=== PATIENT | female | born 1940 ===

== ENCOUNTER 2017-03-19 12:27 | Emergency (ER) | payer MEDICARE, OTHER ==
[2017-03-19 12:29] VITALS: BP 141/67; PULSE 96; RESP 16; TEMP 98.3; O2SAT 99
[2017-03-19] MEDS ORDERED: Sodium Chloride 0.9% 500 ML IV STA (12:50)
--- NOTE | 2017-03-19 12:52 | ED PDOC ---
HPI: General Adult Time Seen by Provider: 03/19/17 12:37 Chief Complaint (Nursing): Dizziness/Lightheaded Chief Complaint (Provider): Dizziness History Per: Patient History/Exam Limitations: no limitations Onset/Duration Of Symptoms: Days (5) Have you had recent travel within the past 21 days to any of the following countries: [place], [place], [place] or [place]?: No Current Symptoms Are (Timing): Still Present Severity: Moderate Additional History Per: Patient Additional Complaint(s): The pt is a 76yo female, PMHx of HTN, cardiac arrhythmia, high cholesterol, presents to the ED for evaluation of dizziness for the past 5 days, described as room spinning. She reports the dizziness was initially waxing and waning but today was constant, prompting her visit to the ED. She reports dizziness worsens with walking and states this is the first instance of such symptoms. Pt denies any headaches, chest pain, abdominal pain, nausea, vomiting, diarrhea, shortness of breath, vision problems, and weakness, numbness or tingling to to her extremities. Pt offers no additional medical complaints. Past Medical History Reviewed: Historical Data, Nursing Documentation, Vital Signs Vital Signs: Last Vital Signs Temp 98.3 F 03/19/17 12:28 Pulse 96 H 03/19/17 12:28 Resp 16 03/19/17 12:28 BP 141/67 03/19/17 12:28 Pulse Ox 99 03/19/17 15:04 - Medical History PMH: Arthritis, Asthma, Cardia Arrhythmia, Gastritis, HTN, Hypercholesterolemia Denies: Chronic Kidney Disease - Surgical History Surgical History: Cholecystectomy, Pacemaker, - Family History Family History: States: Unknown Family Hx - Home Medications Home Medications: Ambulatory Orders Medication Instructions Recorded Albuterol HFA [Ventolin HFA 90 2 puff INH Q4H PRN 05/03/16 mcg/actuation (8 g)] Aspirin [Aspirin Chewable] 81 mg PO DAILY 05/03/16 Atorvastatin [Lipitor] 10 mg PO HS 05/03/16 Budesonide/Formoterol Fumarate 2 puff INH BID 05/03/16 [Symbicort 160-4.5 Mcg Inhaler] Levocetirizine Dihydrochloride 5 mg PO DAILY 05/03/16 [Xyzal] Losartan/Hydrochlorothiazide 1 tab PO DAILY 05/03/16 [Hyzaar 50-12.5 Tablet] Montelukast Sodium [Montelukast 10 mg PO HS 05/03/16 Sodium] Omeprazole [Omeprazole] 40 mg PO DAILY 05/03/16 Meclizine [Antivert] 25 mg PO DAILY PRN 6 Days 03/19/17 - Allergies Allergies/Adverse Reactions: Allergies Allergy/AdvReac Type Severity Reaction Status Date / Time No Known Allergies Allergy Verified 03/19/17 12:28 Review of Systems ROS Statement: Except As Marked, All Systems Reviewed And Found Negative Cardiovascular: Negative for: Chest Pain Respiratory: Negative for: Shortness of Breath Gastrointestinal: Negative for: Nausea, Vomiting, Abdominal Pain, Diarrhea Neurological: Positive for: Dizziness. Negative for: Weakness, Numbness Physical Exam - Reviewed Nursing Documentation Reviewed: Yes Vital Signs Reviewed: Yes - Physical Exam Appears: Positive for: Well, Non-toxic, No Acute Distress Head Exam: Positive for: ATRAUMATIC, NORMAL INSPECTION, NORMOCEPHALIC Skin: Positive for: Normal Color, Warm, DRY Eye Exam: Positive for: EOMI, Normal appearance, PERRL Neck: Positive for: Normal, Supple Cardiovascular/Chest: Positive for: Regular Rate, Rhythm Respiratory: Positive for: Normal Breath Sounds. Negative for: Respiratory Distress Gastrointestinal/Abdominal: Positive for: Normal Exam, Soft. Negative for: Tenderness Back: Positive for: Normal Inspection. Negative for: L CVA Tenderness, R CVA Tenderness Extremity: Positive for: Normal ROM. Negative for: Pedal Edema, Deformity, Swelling Neurologic/Psych: Positive for: Alert, Oriented - Laboratory Results Result Diagrams: 03/19/17 13:30 03/19/17 13:30 Interpretation Of Abn Labs: 22 bun - ECG ECG: Positive for: Interpreted By Me, Viewed By Me Interpretation Of Abn EKG: paced O2 Sat by Pulse Oximetry: 99 (RA) Pulse Ox Interpretation: Normal - CT Scan/US ct Other Rad Studies (CT/US): Read By Radiologist Other Rad Interpretation: no acute - Progress ED Course And Treament: 1503: Stable. AAOx3. Pain free. Antivert helped the dizziness. Symptoms mildly came back after moving around and getting CT. Will give valium. 1546: Ambulating with no issues. Tolerated PO. Active. AAOx3. Fu with clinic. Wants antivert for home. States helped her a lot. Medical Decision Making Medical Decision Making: Time: 1252 Impression: Dizziness Plan: * CT head * CMP * CBC * Troponin * Iv fluids * Antivert * Reassess Scribe Attestation: Documented by Leela Alvarenga acting as a scribe for Spencer Vital MD. Provider Attestation: All medical record entries made by the Scribe were at my direction and personally dictated by me. I have reviewed the chart and agree that the record accurately reflects my personal performance of the history, physical exam, medical decision making, and the department course for this patient. I have also personally directed, reviewed, and agree with the discharge instructions and disposition. Disposition - Clinical Impression Clinical Impression: Dizziness - Patient ED Disposition Is Patient to be Admitted: No Counseled Patient/Family Regarding: Studies Performed, Diagnosis, Need For Followup, Rx Given - Disposition Referrals: [facility] [place] [Outside] - 03/21/17 Disposition: Routine/Home Disposition Time: 15:47 Condition: STABLE Additional Instructions: Return if not better in 3 days. Prescriptions: Meclizine [Antivert] 25 mg PO DAILY PRN 6 Days PRN Reason: Dizziness Instructions: Dizziness (ED) Forms: [employer] (Khmer) Print Language: JAPANESE
[2017-03-19 13:50] LABS: ALB/GLOB RATIO 1.3 (1.0-2.1); ALKALINE PHOSPHATASE 106 U/L (38-126); ALT/SGPT 23 U/L (9-52); AST/SGOT 28 U/L (14-36); BILIRUBIN,TOTAL 0.4 mg/dl (0.2-1.3); BLOOD UREA NITROGEN 22 mg/dl (7-17); CALCIUM 10.1 mg/dL (8.4-10.2); CARBON DIOXIDE 29 mmol/L (22-30); CHLORIDE 100 mmol/L (98-107); GFR AFRICAN-AMERICAN > 60; GLUCOSE,RANDOM 98 mg/dL (65-105); POTASSIUM 3.6 MMOL/L (3.6-5.0); SODIUM 142 mmol/l (132-148); TOTAL PROTEIN 8.3 G/DL (6.3-8.2)
--- NOTE | 2017-03-19 14:09 | CT ---
PROCEDURE: CT HEAD WITHOUT CONTRAST. HISTORY: headache COMPARISON: CT head without contrast performed 03/07/13 TECHNIQUE: Axial computed tomography images were obtained through the head/brain without intravenous contrast. Radiation dose: Total exam DLP = 728.40 mGy-cm. This CT exam was performed using one or more of the following dose reduction techniques: Automated exposure control, adjustment of the mA and/or kV according to patient size, and/or use of iterative reconstruction technique. FINDINGS: HEMORRHAGE: No intracranial hemorrhage. BRAIN: Diffuse atrophy with prominence of the ventricles and sulci noted. No mass effect or edema. Scattered periventricular and subcortical white matter hypodensities, which are nonspecific, but often seen with chronic microvascular ischemic disease. Please note that MRI with diffusion imaging is more sensitive in the detection of acute ischemic event. VENTRICLES: No hydrocephalus. CALVARIUM: Unremarkable. PARANASAL SINUSES: Unremarkable as visualized. No significant inflammatory changes. MASTOID AIR CELLS: Unremarkable as visualized. No inflammatory changes. OTHER FINDINGS: None. IMPRESSION: Generalized atrophy. Nonspecific white matter changes.
[2017-03-19 14:24] LABS: BASO % 0.6 % (0.0-2.0); EOS # 0.1 K/uL (0.0-0.7); EOS % 1.6 % (0.0-4.0); HEMATOCRIT 39.1 % (34.0-47.0); LYMPH # 1.3 K/uL (1.0-4.3); MEAN CELL VOLUME 80.2 fl (81.0-99.0); MEAN CORPUSCULAR HEMOGLOBIN 25.9 pg (27.0-31.0); MEAN CORPUSCULAR HGB CONC 32.3 g/dL (33.0-37.0); MEAN PLATELET VOLUME 8.6 fl (7.2-11.7); MONO # 0.5 K/uL (0.0-0.8); MONO % 6.2 % (0.0-10.0); NEUT # 5.4 K/uL (1.8-7.0); NEUT % 73.6 % (50.0-75.0); NRBC % 0.2 % (0.0-0.0); RED CELL DISTRIBUTION WIDTH 15.1 % (11.5-14.5); WHITE BLOOD COUNT 7.3 K/uL (4.8-10.8)
--- NOTE | 2017-03-21 07:18 | CARD ---
APPROVED REPORT EKG Measurement Heart [id number] <Conclusion> Pacemaker Rhythm Nonspecific intraventricular block Abnormal ECG
== END 2017-03-19 16:28 | disposition home or self-care (01) ==
LOC: H.ER 12:27
DX: R42 Dizziness and giddiness (principal); E78.00 Pure hypercholesterolemia, unspecified; I10 Essential (primary) hypertension; J45.909 Unspecified asthma, uncomplicated; Z79.82 Long term (current) use of aspirin; Z95.0 Presence of cardiac pacemaker
CPT/HCPCS: 70450; 80053; 84484; 85025; 93005; 99284; J7040